=== PATIENT | female | born 2005 | race Caucasian/White ===

== ENCOUNTER 2024-11-13 12:04 | Emergency (ER) | payer MEDICAID, SELFPAY ==
[2024-11-13 12:16] VITALS: BP 116/74; PULSE 68; RESP 16; TEMP 36.6; O2SAT 98
--- NOTE | 2024-11-13 12:30 | DI.RAD_ITS ---
Exam(s) XR KNEE LT 3V AP,LAT,CATRACHITO EXAM: XR KNEE LT 3V AP,LAT,CATRACHITO CLINICAL HISTORY: pain post fall, ecchymosis. TECHNIQUE: 2D digital imaging was performed. Three views. COMPARISON: No exams were available for comparison FINDINGS: BONES: No acute fracture is present. No bony destructive lesion is seen. JOINTS: The knee is normally aligned. No joint effusion is seen. SOFT TISSUE: Normal. IMPRESSION: Normal radiographs of the left knee. DATA REPOSITORY: RADIATION DOSE DELIVERED:
--- NOTE | 2024-11-13 12:48 | ED.GENADUL_ITS ---
Discharge Plan Disposition Patient Disposition: Home Discharge Details Clinical Impression: Contusion of knee, left Primary Care Provider: Abi,Local ED Provider: Yeni Enriquez Home Meds and New Rx's Prescriptions: No Action No Known Home Meds Discharge Instructions Instructions: Acute Pain, Adult Additional Instructions: You may take Motrin and Tylenol as needed for pain You may use your brace for comfort over the course of the next week Please be reevaluated at your scheduled appointment on Thursday Return earlier should you have new or worsening complaints Stand Alone Forms: Work Release HPI General Date/Time Provider Initiated Documentation: 11/13/24 12:17 . HPI Narrative: this 19 yo female presents with wrist injury on Thursday of this week. And states that she tripped landing on her left knee and left wrist. She was evaluated at occupational health and had an x-ray of her left wrist which was reportedly negative for acute abnormality at [facility]. She has been wearing her splint since that time but she is instructed to wear return to work and she does not feel like she is able to perform her job at this time. She also states that her knee was not evaluated and she is asking that we perform an x-ray. Denies transfer or any additional complaints at this time. Denies having her head or loss of conscious. Related Data Home Medications ?Medication ?Instructions ?Recorded ?Confirmed Unknown [No Known Home Meds] 11/13/24 11/13/24 Allergies Allergy/AdvReac Type Severity Reaction Status Date / Time Penicillins Allergy Intermediate Contraindic Verified 11/13/24 12:20 ated diphenhydramine (From AdvReac Mild Other (See Verified 11/13/24 12:20 Benadryl) Comment) General Stated Complaint: Orthopedic MAISHA: 4 Exam Narrative Exam Narrative: Alert and oriented 19-year-old female in no acute distress, left knee with ecchymosis, flexion extension intact no joint laxity, no tenderness to left hip or left ankle neurovascularly intact left wrist with tenderness at the thenar eminence, no obvious signs of trauma, neurovascularly intact predominantly tender with movement of the left thumb Course Vital Signs Vital signs: Vital Signs Temperature 36.6 C 11/13/24 12:16 Pulse 68 11/13/24 12:16 Respiratory Rate 16 11/13/24 12:16 Blood Pressure 116/74 11/13/24 12:16 Pulse Oximetry 98 11/13/24 12:16 Temperature 36.6 C 11/13/24 12:16 Temperature Source Oral 11/13/24 12:16 Pulse 68 11/13/24 12:16 Respiratory Rate 16 11/13/24 12:16 Blood Pressure 116/74 11/13/24 12:16 Blood Pressure Position Sitting 11/13/24 12:16 Pulse Oximetry 98 11/13/24 12:16 Oxygen Delivery Method Room Air 11/13/24 12:16 Oxygen Flow Rate 0 11/13/24 12:16 Pain Level 6 11/13/24 12:40 Medical Decision Making 9-year-old female in no acute distress, left knee x-ray was ordered which per radiology interpretation my review does not show evidence of acute abnormality. Patient is placed in a left knee splint for comfort she will continue to wear her left wrist brace. She is given a work note with restrictions and instructed to follow-up with occupational health at her appointment on Thursday. She is given low threshold to return should she have new or worsening complaints return precautions reviewed and patient expressed understanding Quality:SDOH Health Related Social Needs: No Data to Display PFSH All Active Problems (Updated 11/13/24 @ 14:00 by ANANYA Yung) Contusion of knee, left (Acute) Social History Smoking/Tobacco Use Status: Never Smoking risk assessment performed?: Yes Alcohol Intake: never Drug use: Never Substance use type: former substance user Housing: apartment Do you feel safe at home: Yes Do you feel safe in your relationship?: Yes
--- NOTE | 2024-11-13 13:51 | DI.VRAD_ITS ---
PROCEDURE INFORMATION: Exam: XR Left Knee Exam date and time: 11/13/2024 1:07 PM Age: 19 years old Clinical indication: Other: Pain post fall, ecchymosis TECHNIQUE: Imaging protocol: Radiologic exam of the left knee. Views: 3 views. COMPARISON: No relevant prior studies available. FINDINGS: Bones/joints: There is no evidence of acute fracture.There is no evidence of malalignment or dislocation. Soft tissues: Normal. IMPRESSION: There is no evidence of acute fracture.There is no evidence of malalignment or dislocation. Dictated and Authenticated by: Monalisa Irizarry MD. Orderin Zoe Jaime MD
[2024-11-13 14:18] VITALS: BP 99/65; PULSE 71; RESP 16; TEMP 36.6; O2SAT 98
== END 2024-11-13 14:19 | disposition home or self-care (01) ==
PROVIDERS: Emergency Provider Physician Assistant
DX: S80.02XA Contusion of left knee, initial encounter (principal); W01.0XXA Fall on same level from slipping, tripping and stumbling without subsequent striking against object, initial encounter; Y99.0 Civilian activity done for income or pay
CPT/HCPCS: 29505; 73562; 99283

== ENCOUNTER 2024-11-16 19:12 | Emergency (ER) | payer MEDICAID, SELFPAY ==
[2024-11-16 19:21] VITALS: BP 113/71; PULSE 83; RESP 20; TEMP 36.7; O2SAT 98
--- NOTE | 2024-11-16 19:30 | ED.GENADUL_ITS ---
Discharge Plan Disposition Patient Disposition: Home Condition: Stable Discharge Details Clinical Impression: Tight cast Primary Care Provider: Abi,Local ED Provider: Dianelys Denton Home Meds and New Rx's Prescriptions: No Action No Known Home Meds Discharge Instructions Instructions: How to Use an Elastic Bandage Additional Instructions: You were seen in the emergency department today for evaluation of hand pain and swelling in the setting of a splint with an Mario wrap. In our department he had a full physical examination performed, and the Mario wrap was loosened. After that the pain and swelling in your hand improved, and you had good sensation and circulation. It is safe for you to go home and follow-up at your scheduled appointment for reevaluation, please continue to use the splints as recommended, and continue to use Tylenol and ibuprofen as needed for pain and ice and elevation for swelling. Please follow-up with your primary care provider in the next few days to discuss this visit and any symptoms that change, worsen, or persist. Thank you for allowing us to be part of your care. HPI General Mode of arrival: ambulatory . Date/Time Provider Initiated Documentation: 11/16/24 19:15 . Limitations to Documentation: no limitations . Information obtained by: patient, family and old records reviewed . HPI Narrative: HPI: This is a 19-year-old female patient who was seen in the emergency department in urgent care for wrist injury, placed in a thumb spica splint, presenting for evaluation of a splint that feels too tight. She noticed that her left hand was swollen, tender, and presented for this concern. She states that she has otherwise been in her normal state of health, has a plan for outpatient follow-up for definitive management of this presumed fracture. She was also placed in a knee brace at her last visit and has been wearing that without difficulties or issues. Prior to my evaluation, the patient's Mario bandage was loosened, and she had an immediate sensation of relief, with improvement in her swelling. Exam: Gen: Awake and alert, in no apparent distress HEENT: Non-icteric sclera Neck: Supple Lungs: No apparent respiratory distress, normal respiratory effort. CV: Appears well perfused Abdomen: Non-distended MSK: Moves 4 extremities without apparent limitation in ROM, left wrist is in a Orthoplast thumb spica splint with a Mario wrap, CSM's are present, and symmetrical distal to the splint, with brisk capillary refill, full movement and sensation. Left knee in a hinged knee brace Skin: Visualized skin without rashes, cyanosis. Neuro: Normal Gait, no obvious focal deficits or facial asymmetry. Speaks in full, clear sentences. Psych: Appropriate for situation. MDM: This is a 19-year-old female patient presenting for evaluation of a tight splint. The splint has been readjusted and she has had resolution of her symptoms. Differential includes but is not limited to constricting Mario wrap, I see no evidence of ongoing neurovascular derangement, significant swelling, did consider swelling in the context of her recent injury fracture. ED Course: At this time, the patient has had a full medical evaluation and is safe for discharge to home. They are hemodynamically stable, ambulatory, and tolerating PO. They are understanding of the follow-up plan and return precautions. They left our facility without incident. Dianelys Denton MD Related Data Home Medications ?Medication ?Instructions ?Recorded ?Confirmed Unknown [No Known Home Meds] 11/13/24 11/16/24 Allergies Allergy/AdvReac Type Severity Reaction Status Date / Time Penicillins Allergy Intermediate Contraindic Verified 11/16/24 19:24 ated diphenhydramine (From AdvReac Mild Other (See Verified 11/16/24 19:24 Benadryl) Comment) General Stated Complaint: Orthopedic MAISHA: 4 Course Vital Signs Vital signs: Vital Signs Temperature 36.7 C 11/16/24 19:21 Pulse 83 11/16/24 19:21 Respiratory Rate 20 11/16/24 19:21 Blood Pressure 113/71 11/16/24 19:21 Pulse Oximetry 98 11/16/24 19:21 Temperature 36.7 C 11/16/24 19:21 Pulse 83 11/16/24 19:21 Respiratory Rate 20 11/16/24 19:21 Blood Pressure 113/71 11/16/24 19:21 Blood Pressure Position Sitting 11/16/24 19:21 Pulse Oximetry 98 11/16/24 19:21 Oxygen Delivery Method Room Air 11/16/24 19:21 Oxygen Flow Rate 0 11/16/24 19:21 Medical Decision Making Quality:SDOH Health Related Social Needs: No Data to Display PFSH All Active Problems (Updated 11/16/24 @ 19:31 by Dianelys Denton MD) Tight cast (Acute) Contusion of knee, left (Acute) Social History Smoking/Tobacco Use Status: Never Smoking risk assessment performed?: Yes Alcohol Intake: never Drug use: Never Substance use type: former substance user Housing: apartment Do you feel safe at home: Yes Do you feel safe in your relationship?: Yes
[2024-11-16 19:42] VITALS: BP 113/71; PULSE 83; RESP 20; TEMP 36.7; O2SAT 98
== END 2024-11-16 19:42 | disposition home or self-care (01) ==
LOC: ER 19:33
PROVIDERS: Emergency Provider Emergency Medicine
DX: Z47.89 Encounter for other orthopedic aftercare (principal)
CPT/HCPCS: 99282

== ENCOUNTER 2024-11-23 07:41 | Emergency (ER) | payer MEDICAID, SELFPAY ==
[2024-11-23 07:47] VITALS: BP 112/57; PULSE 70; RESP 18; TEMP 36.6; O2SAT 97
--- NOTE | 2024-11-23 08:14 | W.ED.GENAD ---
Discharge Plan Disposition Patient Disposition: Home Condition: Good Discharge Details Clinical Impression: Allergic to bugs, Swelling of eyelid Primary Care Provider: Abi,Local ED Provider: Tessa Conte Home Meds and New Rx's Prescriptions: New prednisone 20 mg tablet 40 mg PO DAILY 2 Days Qty: 4 0RF Discharge Instructions Instructions: Insect allergy, Prednisone Additional Instructions: Will still frustrating and not knowing what has bitten you, I encourage you to continue to look into this as you have been. I am concerned that if you continue to have bites he was to have recurrence of your exposure and increased symptoms. While many of your bug bites look fairly benign, I am concerned that the swelling over the left eye has not gone down over the past 2 days and feel that a small course of steroids would be beneficial. You are given your first dose here today, second dose to be taken tomorrow morning and has been sent to [facility]. Please continue to encourage hydration. Ice packs over this can also help with swelling. Although you are allergic to Benadryl, you may find other antihistamine such as Claritin, famotidine however [id number] options to be of benefit without having the side effects experienced with Benadryl. I have placed you on follow-up list with primary care and you should hear from our care management team regarding establishing local primary care. If you develop any fever/chills, increased pain, visual changes or the new/worsening symptoms please seek care urgently once again. HPI General Date/Time Provider Initiated Documentation: 11/23/24 07:51. Limitations to Documentation: no limitations. Information obtained by: patient and RN notes reviewed. History of Present Illness 19 year old F presents to the emergency department with the chief complaint of swollen left eye lid, bug bites, allergies, described as moderate, with intensity rated at 6. Quality is described as aching (pressure, swelling), and is localized to the face and eyes. Patient started experiencing this day(s) and it has been constant. other things that improve symptom(s), (being upright) Rest worsens symptoms (laying flat) . Patient notes no other symptoms.. Patient did receive the following treatments prior to arrival, none Related Data Home Medications ?Medication ?Instructions ?Recorded ?Confirmed prednisone 20 mg tablet 40 mg (2 x 20 mg) PO DAILY 2 days 11/23/24 #4 tabs Previous Rx's ?Medication ?Instructions ?Recorded prednisone 20 mg tablet 40 mg (2 x 20 mg) PO DAILY 2 days 11/23/24 #4 tabs Allergies Allergy/AdvReac Type Severity Reaction Status Date / Time Penicillins Allergy Intermediate Contraindic Verified 11/23/24 07:49 ated diphenhydramine (From AdvReac Mild Other (See Verified 11/23/24 07:49 Benadryl) Comment) General Stated Complaint: Allergic MAISHA: 4 Review of Systems Constitutional Constitutional: Reports as per HPI, Denies chills and Denies fever(s) Eyes Eyes: Reports as per HPI ENT Ears, Nose, Mouth, and Throat: Reports as per HPI Cardiovascular Cardiovascular: Denies chest pain Respiratory Respiratory: Reports as per HPI Gastrointestinal Gastrointestinal: Reports as per HPI Integumentary/Breasts Skin/Breast: Reports as per HPI Exam Const General: cooperative, healthy appearing, comfortable, no acute distress, well developed and anxious Nutritional Appearance: average body habitus and well nourished Orientation: alert, awake and oriented x3 HENMT Head: normal to inspection, normocephalic and atraumatic Ears: hearing grossly normal bilaterally General nose exam: external nose normal Face and sinus: no crepitus, erythema (redness associated with around the left eyelid but more pink than red), no fluctuance, no lacerations and no sinus tenderness Mouth: oral mucosae normal, lip normal, tongue normal, oropharynx normal, moist mucous membranes, no drooling and no muffled voice Teeth and gingiva: dentition normal Throat: posterior oropharynx normal Eyes Alignment and Position: alignment normal and position normal Eyelids: eyelid abnormality right upper eyelid erythema and swelling; nontender Conjunctivae: conjunctivae normal Sclera: sclerae normal Cornea: corneas normal Pupils: PERRL, normal by confrontation and accommodation normal EOM: EOM intact bilaterally Resp Effort & Inspection: normal respiratory effort, able to speak in complete sentences and no respiratory distress Cardio Rate: regular rate Rhythm: regular rhythm Skin General skin exam: erythema (several bug bites, especially at left eye as above) Neuro General: patient alert and patient awake Cognition: normal cognition Speech: speech normal Gait: normal gait Course Vital Signs Vital signs: Vital Signs Temperature 36.6 C 11/23/24 07:47 Pulse 70 11/23/24 07:47 Respiratory Rate 18 11/23/24 07:47 Blood Pressure 112/57 L 11/23/24 07:47 Pulse Oximetry 97 11/23/24 07:47 Temperature 36.6 C 11/23/24 07:47 Pulse 70 11/23/24 07:47 Respiratory Rate 18 11/23/24 07:47 Blood Pressure 112/57 L 11/23/24 07:47 Blood Pressure Position Sitting 11/23/24 07:47 Pulse Oximetry 97 11/23/24 07:47 Oxygen Delivery Method Room Air 11/23/24 07:47 Oxygen Flow Rate 0 11/23/24 07:47 Pain Level 6 11/23/24 07:47 Medical Decision Making Patient is a pleasant 19-year-old female with past medical history of anxiety, allergies to bug bites, presenting today with chief complaint of several bug bites, most predominant which is to the left eye. She reports she has been waking with these bites since moving to the area few months ago. However, the 1 in the left eye has been more problematic than the others. She does demonstrate what appears to be benign bug bites on her right forearm, left thumb, left thigh. She reports that her significant other who sleeps in the same space as her has not had any similar bites. They have been assessed for bedbugs and fleas and have not had either of these. States that the bug bite on the left eye occurred about 2 days ago and while the swelling has waxed and waned, it is been fairly consistent and is problematic as the swelling to the upper lid can cause visual obstruction make it difficult for her to drive. No fevers or chills. Discomfort with the swelling but no significant pain over the eyelid. States that she does have some obstruction to her vision but no true visual changes. On exam, patient appears anxious but otherwise nontoxic. She is hemodynamically stable. She does have swelling to the left upper lid but she is able to open the eyes and has a normal eye exam. No conjunctival injection. No discharge. Pupils are equal round and reactive. The area of swelling, which is predominantly to the upper lid is pink but does not significantly red or hot. No crepitus or fluctuance. Nontender to palpation. The area of bite appears to be on the lateral aspect of the upper lid as I can see a small red dot which is consistent with the other areas she is able to demonstrate with said bites. At this point, patient does not appear systemically ill. I do not see evidence to suggest orbital cellulitis or periorbital cellulitis. No evidence to suggest infectious process. No ocular involvement that I can appreciate. However, with the swelling continuing over 2 days and obstructing her ability to drive and complete her activities of daily living, feel that treatment with steroids is appropriate. Patient does become high with Benadryl and is not able to take this on a routine basis. We did discuss other antihistamines as well as continuing cool compresses. We also discussed that some of the increase in swelling can be associated with a dependent position at night so would expect exacerbated symptoms in the morning. However, it does sound like while the symptoms do improve somewhat throughout the day, they still are bothersome enough to limit vision and be problematic for the patient. We did discuss side effects at length. Patient is quite anxious around taking medications we did have an in-depth discussion regarding treatment options, potential side effects to watch for. Return precautions were discussed. I have asked care management to establish local primary care. Strict return precautions were given. All her questions and concerns were addressed and she is in agreement this plan. This documentation was generated using [employer] dictation system, please disregard any oddities of phrase or misspellings. Quality:SDOH Health Related Social Needs: No Data to Display PFSH All Active Problems (Updated 11/23/24 @ 08:17 by AANNYA Vigil) Swelling of eyelid (Acute) Allergic to bugs (Acute) Tight cast (Acute) Contusion of knee, left (Acute) Social History Smoking/Tobacco Use Status: Never Smoking risk assessment performed?: Yes Alcohol Intake: never Drug use: Never Substance use type: does not use Housing: apartment Do you feel safe at home: Yes Do you feel safe in your relationship?: Yes
[2024-11-23] MEDS: predniSONE 20 MG TAB 40 MG PO (08:16)
== END 2024-11-23 08:36 | disposition home or self-care (01) ==
PROVIDERS: Emergency Provider Physician Assistant
DX: H02.841 Edema of right upper eyelid (principal); T63.481A Toxic effect of venom of other arthropod, accidental (unintentional), initial encounter
CPT/HCPCS: 99283; J7512

== ENCOUNTER 2024-12-10 13:38 | Emergency (ER) | payer MEDICAID, SELFPAY ==
[2024-12-10 13:41] VITALS: BP 97/63; PULSE 85; RESP 16; TEMP 36.6; O2SAT 98
[2024-12-10 13:43] VITALS: BP 97/63; PULSE 85; RESP 16; TEMP 36.6; O2SAT 98
[2024-12-10] MEDS: Ondansetron O.D.T. 4 MG TABEF PO (13:52)
[2024-12-10 14:14] VITALS: RESP 16
--- NOTE | 2024-12-10 14:54 | ED.GENADUL_ITS ---
Discharge Plan Disposition Patient Disposition: Home Condition: Stable Discharge Details Clinical Impression: Acute viral syndrome Primary Care Provider: Abi,Local ED Provider: Javid Kovacs Home Meds and New Rx's Prescriptions: New ondansetron 4 mg tablet,disintegrating 4 mg PO Q6H PRN (Reason: nausea and vomiting) Qty: 30 0RF Discharge Instructions Additional Instructions: Your viral testing is negative for flu and COVID. Your symptoms are very consistent with a viral syndrome. Please continue Motrin and Tylenol as needed. Prescription for nausea medication has been sent to the pharmacy. Please return if you have severe worsening of symptoms, unable to tolerate anything by mouth. Otherwise you can follow-up with your primary care for any ongoing issues. HPI General Date/Time Provider Initiated Documentation: 12/10/24 13:44 . Limitations to Documentation: no limitations . Information obtained by: patient . HPI Narrative: 19-year-old female without significant past medical history presents for evaluation of subjective fever, headache, cough, nausea nasal congestion. Symptoms started mildly yesterday, reports significant change in symptoms today. Subjective fever at home, they do not have a thermometer. Has had nausea but no vomiting. Related Data Home Medications ?Medication ?Instructions ?Recorded ?Confirmed ondansetron 4 mg disintegrating 4 mg PO Q6H PRN nausea and 12/10/24 tablet vomiting #30 tabs Previous Rx's ?Medication ?Instructions ?Recorded ondansetron 4 mg disintegrating 4 mg PO Q6H PRN nausea and 12/10/24 tablet vomiting #30 tabs Allergies Allergy/AdvReac Type Severity Reaction Status Date / Time Penicillins Allergy Intermediate Contraindic Verified 12/10/24 13:43 ated diphenhydramine (From AdvReac Mild Other (See Verified 12/10/24 13:43 Benadryl) Comment) General Stated Complaint: GenMedical MAISHA: 3 Exam Narrative Exam Narrative: Review of Systems: All systems reviewed & are unremarkable except as noted in HPI and below Well-developed, no acute distress Afebrile NCAT Bilateral TMs unremarkable Oropharynx without tonsillar enlargement or exudate, no significant cervical adenopathy she says since PERRL, normal conjunctiva RRR Unlabored respiratory effort, CTAB Course Vital Signs Vital signs: Vital Signs Temperature 36.6 C 12/10/24 13:41 Pulse 85 12/10/24 13:41 Respiratory Rate 16 12/10/24 13:41 Blood Pressure 97/63 L 12/10/24 13:41 Pulse Oximetry 98 12/10/24 13:41 Temperature 36.6 C 12/10/24 13:43 Pulse 85 12/10/24 13:43 Respiratory Rate 16 12/10/24 14:14 Respiratory Effort Normal, Non-Labored 12/10/24 14:14 Respiratory Depth Normal 12/10/24 14:14 Respiratory Pattern Normal 12/10/24 14:14 Blood Pressure 97/63 L 12/10/24 13:43 Pulse Oximetry 98 12/10/24 13:43 Lab/Test Results Lab/Test Results: POC- Test(urine) Negative Medical Decision Making Emergent evaluation of URI symptoms. Symptoms do seem consistent with a viral syndrome. Her examination is benign and she is nontoxic-appearing. She has low blood pressure, but is a very petite thin woman. I do not suspect that she has sepsis. She is not . Viral testing for flu and COVID were both negative. She was provided with Zofran in the emergency department and prescription to go home with. Supportive care instructions provided to the patient recommend close follow-up with PCP as needed. Quality:SDOH Health Related Social Needs: No Data to Display PFSH All Active Problems (Updated 12/10/24 @ 14:26 by Javid Kovacs MD) Acute viral syndrome (Acute) Swelling of eyelid (Acute) Allergic to bugs (Acute) Tight cast (Acute) Contusion of knee, left (Acute) Social History Smoking/Tobacco Use Status: Never Smoking risk assessment performed?: Yes Alcohol Intake: never Drug use: Never Substance use type: does not use Housing: apartment Do you feel safe at home: Yes Do you feel safe in your relationship?: Yes
[2024-12-10 15:04] VITALS: BP 100/62; PULSE 76; RESP 16; TEMP 36.6; O2SAT 98
== END 2024-12-10 15:16 | disposition home or self-care (01) ==
PROVIDERS: Emergency Provider Emergency Medicine
DX: B34.9 Viral infection, unspecified (principal)
CPT/HCPCS: 81025; 87426; 99283

== ENCOUNTER 2025-02-17 09:20 | Emergency (ER) | payer MEDICAID, SELFPAY ==
[2025-02-17 09:23] VITALS: BP 110/76; PULSE 109; RESP 18; TEMP 36.7; O2SAT 97
--- NOTE | 2025-02-17 09:42 | ED.GENADUL_ITS ---
Discharge Plan Disposition Patient Disposition: Home Condition: Good Discharge Details Clinical Impression: Nausea and vomiting, URI (upper respiratory infection) Primary Care Provider: Abi,Local ED Provider: Tessa Conte Home Meds and New Rx's Prescriptions: New ondansetron 4 mg tablet,disintegrating 4 mg PO Q6H PRN (Reason: nausea and vomiting) Qty: 20 0RF No Action ondansetron 4 mg tablet,disintegrating 4 mg PO Q6H PRN (Reason: nausea and vomiting) Qty: 30 0RF Discharge Instructions Instructions: Nausea and Vomiting, Adult ED, Upper respiratory infection in adults - Discharge instructions Additional Instructions: As we discussed, you are negative here today for flu, COVID, but believe he have a different viral illness based on the different symptoms you are presenting with. I encouraged hydration. Please take frequent sips. You may use the Zofran as prescribed if you have any recurrent nausea or vomiting. May advance diet as tolerated but I encourage you to start with more easy digest foods such as bananas, rice, applesauce, toast. May use Tylenol and ibuprofen as needed for discomfort. Please take as directed on the packaging. I have sent a referral for local primary care, please ensure you follow-up with them within the next 1 to 2 weeks for reevaluation and to establish care. If you develop inability stay hydrated, fever/chills, increased pain or other new/worsening symptom please seek care urgently once again. Discharge Data Discharge Date/Time-TO BE ENTERED AT DEPARTURE: 02/17/25 11:50 HPI General Date/Time Provider Initiated Documentation: 02/17/25 09:35 . Limitations to Documentation: no limitations . Information obtained by: patient, family (signficant other) and RN notes reviewed . History of Present Illness 19 year old F presents to the emergency department with the chief complaint of cough, sore throat, GI upset, described as moderate, Patient started experiencing this day(s) (1) and it has been constant. No relieving factors improve symptom(s), No exacerbating factors reported . Patient notes cough, loss of appetite, malaise and nausea/vomiting; denies chest pain, diaphoresis, fever/chills, rash, shortness of breath, syncope and weakness. Patient did receive the following treatments prior to arrival, none Related Data Home Medications ?Medication ?Instructions ?Recorded ?Confirmed ondansetron 4 mg disintegrating 4 mg PO Q6H PRN nausea and 12/10/24 02/17/25 tablet vomiting #30 tabs ondansetron 4 mg disintegrating 4 mg PO Q6H PRN nausea and 02/17/25 tablet vomiting #20 tabs Previous Rx's ?Medication ?Instructions ?Recorded ondansetron 4 mg disintegrating 4 mg PO Q6H PRN nausea and 12/10/24 tablet vomiting #30 tabs ondansetron 4 mg disintegrating 4 mg PO Q6H PRN nausea and 02/17/25 tablet vomiting #20 tabs Allergies Allergy/AdvReac Type Severity Reaction Status Date / Time Penicillins Allergy Intermediate Contraindic Verified 02/17/25 09:26 ated diphenhydramine (From AdvReac Mild Other (See Verified 02/17/25 09:26 Benadryl) Comment) General Stated Complaint: Nausea/Vomit/Diar MAISHA: 3 Review of Systems Constitutional Constitutional: Reports as per HPI, Reports fatigue, Reports headache(s), Reports malaise and Reports poor appetite Eyes Eyes: Reports as per HPI, Denies eye discharge and Denies irritation ENT Ears, Nose, Mouth, and Throat: Reports as per HPI and Reports headache(s) Cardiovascular Cardiovascular: Reports as per HPI, Denies chest pain and Denies dyspnea Respiratory Respiratory: Reports as per HPI and Denies dyspnea Gastrointestinal Gastrointestinal: Reports as per HPI, Denies abdominal pain, Denies change in bowel habits, Reports nausea and Reports vomiting Integumentary/Breasts Skin/Breast: Reports as per HPI and Denies rash Neurologic Neurologic: Reports as per HPI and Reports headache(s) Endocrine Endocrine: Reports fatigue Exam Const General: cooperative, healthy appearing, comfortable, no acute distress, well developed, well groomed and anxious (tearful) Nutritional Appearance: average body habitus and well nourished Orientation: alert and awake [facility] Head: normal to inspection, normocephalic and atraumatic Ears: hearing grossly normal bilaterally, external ears normal and TM's normal bilaterally General nose exam: external nose normal and nares normal Face and sinus: normal facial exam, sinuses nontender and face symmetric Mouth: oral mucosae normal, lip normal, tongue normal, oropharynx normal and moist mucous membranes Teeth and gingiva: dentition normal Throat: posterior oropharynx normal, tonsils normal and uvula midline Eyes General: appearance normal, both eyes and all related structures Neck Neck: normal visual inspection, full ROM, no lymphadenopathy and no meningeal signs Resp Effort & Inspection: normal respiratory effort, able to speak in complete sentences and no respiratory distress Auscultation: clear to auscultation bilaterally, no rales, no rhonchi and no wheezes Cardio Rate: regular rate Rhythm: regular rhythm Heart Sounds: S1 normal and S2 normal GI Inspection: normal to inspection Palpation: soft, no guarding and nontender Skin General skin exam: no rashes or lesions noted Neuro General: patient alert and patient awake Cognition: normal cognition Speech: speech normal Gait: normal gait Course Vital Signs Vital signs: Vital Signs Temperature 36.7 C 02/17/25 09:23 Pulse 109 H 02/17/25 09:23 Respiratory Rate 18 02/17/25 09:23 Blood Pressure 110/76 02/17/25 09:23 Pulse Oximetry 97 02/17/25 09:23 Temperature 36.7 C 02/17/25 09:23 Temperature Source Oral 02/17/25 09:23 Pulse 109 H 02/17/25 09:23 Respiratory Rate 18 02/17/25 09:23 Blood Pressure 110/76 02/17/25 09:23 Pulse Oximetry 97 02/17/25 09:23 Oxygen Delivery Method Room Air 02/17/25 09:23 Oxygen Flow Rate 0 02/17/25 09:23 Medical Decision Making Patient is a 19-year-old female, accompanied by significant other, with no significant past medical history, presenting today with chief complaint of 24 hours of nausea, vomiting, sore throat, ear discomfort and cough. No known sick contacts. No recent travel. She does report that this morning, after trying to eat some chicken nuggets, she was dry heaving and is not sure if she coughed or dry heaves may have been brown blood. However, this was also at the same time that she was eating. Significant other indicates that this is quite small and not truly identified as blood. No other episodes like this. No significant abdominal pain, rather just having some discomfort from the nausea. She has not tried anything for the her symptoms. Normal bowel and bladder habits. Currently on menses. On exam, patient appears nontoxic. She resting comfortably no acute distress although she does appear very anxious. I did discuss this with her and she is concerned about how poorly she feels. She was slightly tachycardic with a heart rate of 109. On auscultation, does seem that this has slowed down. Normal cardiac and pulmonary exam. Her lungs are clear in all gregory, moving air well and speaking in full sentences. HEENT exam is without significant abnormality, potentially some mild erythema in the posterior oropharynx but no indication to suggest strep such as significant swelling, erythema or exudate. She has no lymphadenopathy. The broad range of her symptoms are most consistent with a viral illness. More concerned that she is not able to keep down fluids at this point, will give Zofran and attempt some oral rehydration. Will give her some Tylenol for her discomfort. Continue to monitor her and ensure that she is able to stay hydrated. I do not see indication to suggest that the patient is septic, has a bacterial illness, any significant bleeding or other emergent pathology at this point. After Zofran and Tylenol, patient significantly improved. She feels ready for d/c to home. viral panel negative. PRESLEY, nausea, improved. We discussed supportive care. Encoruaged hydration. Will continue with ODT Zofran Was sent to her pharmacy. Strict return precautions were discussed. Advise follow-up with primary care. As patient does not have a locally, I did ask that care management help arrange for follow-up. All of her questions and concerns were addressed and she is in agreement with this plan. PFSH All Active Problems (Updated 02/17/25 @ 11:32 by ANANYA Vigil) URI (upper respiratory infection) (Acute) Nausea and vomiting (Acute) Social History Smoking/Tobacco Use Status: Never Smoking risk assessment performed?: Yes Alcohol Intake: never Drug use: Never Substance use type: does not use Housing: apartment Do you feel safe at home: Yes Do you feel safe in your relationship?: Yes
[2025-02-17 09:43] VITALS: BP 110/76; PULSE 109; RESP 18; TEMP 36.7; O2SAT 97
[2025-02-17] MEDS: Acetaminophen 325 MG TAB 650 MG PO (10:40)
[2025-02-17] MEDS: Ondansetron O.D.T. 4 MG TABEF PO (10:40)
[2025-02-17 11:11] VITALS: BP 114/67; PULSE 75; RESP 16; O2SAT 100
[2025-02-17 11:49] VITALS: BP 102/62; PULSE 75; RESP 16; O2SAT 100
== END 2025-02-17 11:50 | disposition home or self-care (01) ==
PROVIDERS: Emergency Provider Physician Assistant
DX: R11.2 Nausea with vomiting, unspecified (principal); J02.9 Acute pharyngitis, unspecified
CPT/HCPCS: 87426; 99283

== ENCOUNTER 2025-03-16 08:17 | Emergency (ER) | payer MEDICAID, SELFPAY ==
[2025-03-16 08:19] VITALS: BP 94/54; PULSE 88; RESP 16; TEMP 37.1; O2SAT 97
--- NOTE | 2025-03-16 08:30 | DI.RAD_ITS ---
Exam(s) XR HAND RT COMPLETE EXAM: XR HAND RT COMPLETE CLINICAL HISTORY: pain 4-5 mcp, s/p fall. TECHNIQUE: 2D digital imaging was performed. Three views. COMPARISON: No exams were available for comparison FINDINGS: BONES: No acute fracture is present. No bony destructive lesion is seen. JOINTS: No dislocation present. SOFT TISSUE: Normal. IMPRESSION: Unremarkable radiographs of the right hand. DATA REPOSITORY: RADIATION DOSE DELIVERED:
--- NOTE | 2025-03-16 08:37 | ED.GENADUL_ITS ---
Discharge Plan Disposition Patient Disposition: Home Discharge Details Clinical Impression: Finger sprain Primary Care Provider: Abi,Local ED Provider: Yeni Enriquez Home Meds and New Rx's Prescriptions: No Action No Known Home Meds Discharge Instructions Instructions: Finger Sprain (DC) Additional Instructions: motrin/tylenol as needed for pain rest with splint apply ice your xray was read by radiologist and does not show a break/fracture recheck in one week with persistent pain, numbness/tingling, or should any new concerns arise HPI General Date/Time Provider Initiated Documentation: 03/16/25 08:19 . HPI Narrative: The patient is a 20-year-old female who presents for evaluation of pain in her right hand after a fall yesterday. She went to work this morning and tried using her hand and had some difficulty secondary to discomfort. She reports no pain in the wrist but notes that the discomfort is primarily in the 4th and 5th fingers. She is not . Related Data Home Medications ?Medication ?Instructions ?Recorded ?Confirmed Unknown [No Known Home Meds] 03/16/25 0 03/16/25 Allergies Allergy/AdvReac Type Severity Reaction Status Date / Time Penicillins Allergy Intermediate Contraindic Verified 03/16/25 08:25 ated diphenhydramine (From AdvReac Mild Other (See Verified 03/16/25 08:25 Benadryl) Comment) General Stated Complaint: Orthopedic MAISHA: 4 Exam Narrative Exam Narrative: The patient is in no acute distress. There is tenderness over the 4th and 5th MCP joints of the hand. Good capillary refill and sensation are intact distally. No tenderness to the wrist. Course Vital Signs Vital signs: Vital Signs Temperature 37.1 C 03/16/25 08:19 Pulse 88 03/16/25 08:19 Respiratory Rate 16 03/16/25 08:19 Blood Pressure 94/54 L 03/16/25 08:19 Pulse Oximetry 97 03/16/25 08:19 Temperature 37.1 C 03/16/25 08:19 Temperature Source Oral 03/16/25 08:19 Pulse 88 03/16/25 08:19 Respiratory Rate 16 03/16/25 08:19 Blood Pressure 94/54 L 03/16/25 08:19 Blood Pressure Position Sitting 03/16/25 08:19 Pulse Oximetry 97 03/16/25 08:19 Oxygen Delivery Method Room Air 03/16/25 08:19 Oxygen Flow Rate 0 03/16/25 08:19 Pain Level 6 03/16/25 08:28 Medical Decision Making X-ray of the right hand shows no acute abnormality. Per radiology interpretation of my review Initial Assessment: 20-year-old female with right hand pain after a fall, predominantly in the 4th and 5th fingers. No wrist pain. Tenderness over 4th and 5th MCP joints. Good capillary refill and intact distal sensation. ED Course: - X-ray reviewed by me, no acute abnormality. - Aluminum foam finger splint applied by me - Motrin Tylenol rest ice elevation encouraged Final Assessment: X-ray showed no acute abnormality. Aluminum foam finger splint applied. Neurovascularly intact. Clinical Impression: - Right hand pain Disposition: - Discharge home. - Return precautions reviewed and understood. [facility] All Active Problems (Updated 03/16/25 @ 09:00 by ANANYA Yung) Finger sprain (Acute) URI (upper respiratory infection) (Acute) Nausea and vomiting (Acute) Social History Smoking/Tobacco Use Status: Never Smoking risk assessment performed?: Yes Alcohol Intake: never Drug use: Never Substance use type: does not use Housing: apartment Do you feel safe at home: Yes Do you feel safe in your relationship?: Yes
[2025-03-16] MEDS: Ibuprofen 600 MG TAB PO (09:05)
[2025-03-16 09:12] VITALS: BP 95/59; PULSE 66; RESP 16; O2SAT 99
== END 2025-03-16 09:14 | disposition home or self-care (01) ==
PROVIDERS: Emergency Provider Physician Assistant
DX: M79.641 Pain in right hand (principal); S63.616A Unspecified sprain of right little finger, initial encounter; W18.39XA Other fall on same level, initial encounter
CPT/HCPCS: 29130; 99283; 73130

== ENCOUNTER 2025-03-22 07:50 | Emergency (ER) | payer MEDICAID, SELFPAY ==
[2025-03-22 07:54] VITALS: BP 117/66; PULSE 71; RESP 16; TEMP 36.5; O2SAT 97
--- NOTE | 2025-03-22 08:13 | W.ED.GENAD ---
Discharge Plan Disposition Patient Disposition: Home Condition: Stable Discharge Details Clinical Impression: Nausea & vomiting, Acute upper respiratory infection Primary Care Provider: Abi,Local ED Provider: Kayla Tavarez Home Meds and New Rx's Prescriptions: New ondansetron 4 mg tablet,disintegrating 4 mg PO Q6H PRNQty: 14 0RF Discharge Instructions Instructions: Viral Upper Respiratory Infection, Adult (DC), Nausea and Vomiting, Adult ED Additional Instructions: Slowly advance diet. Take Zofran as needed for nausea. If you develop any significant abdominal pain, fevers, intractable vomiting, or significant hemoptysis please return immediately for reevaluation. Discharge Data Discharge Physician: Kayla Tavarez [facility] General Date/Time Provider Initiated Documentation: 03/22/25 08:00. HPI Narrative: 20-year-old female presents for evaluation of vomiting and cough. Patient states that yesterday she was very nauseous and has several episodes of dry heaving. She did vomit once. There was some blood streaked in the vomit. Today she has not had any vomiting however she is slightly nauseous with eating. She has now developed a cough and has had some blood in her sputum. She denies any fevers or chills. No diarrhea or constipation. No increased urinary frequency, dysuria, gross hematuria. Denies any possibility of . No history of asthma. She states a month ago she was exposed to mold and had a similar cough which had resolved. She was able to drink coffee and have other fluids during the night. She ate a small amount of a [place] this morning however was nauseous afterward. She did not vomit at that time. Related Data Home Medications ?Medication ?Instructions ?Recorded ?Confirmed ondansetron 4 mg disintegrating 4 mg PO Q6H PRN #14 tabs 03/22/25 tablet Previous Rx's ?Medication ?Instructions ?Recorded ondansetron 4 mg disintegrating 4 mg PO Q6H PRN #14 tabs 03/22/25 tablet Allergies Allergy/AdvReac Type Severity Reaction Status Date / Time Penicillins Allergy Intermediate Contraindic Verified 03/22/25 07:59 ated diphenhydramine (From AdvReac Mild Other (See Verified 03/22/25 07:59 Benadryl) Comment) General Stated Complaint: GenMedical MAISHA: 4 Review of Systems Narrative: Remainder of review of systems otherwise negative except for as noted in the HPI x 10. Exam Narrative Exam Narrative: General: non-toxic, no respiratory distress, comfortable HEENT: normocephalic, atraumatic, lids and lashes normal, PERRL, EOMI, anicteric sclera, no conjunctival injection, TMs clear bilaterally, moist oral mucosa, no for injection, uvula midline Card: regular rate and rhythm, S1S2, no murmurs, rubs, or gallops Lungs: good air entry, clear to auscultation bilaterally. no wheezes, rales, rhonchi, or retractions Abd: soft, non-tender, non-distended, normal bowel sounds, no rebound or guarding, no peritoneal signs Musculoskeletal: full range of motion of arms and legs, no tenderness to palpation. no clubbing, cyanosis, or edema Neurologic: appropriate for age, strength normal Psych: alert and oriented Skin: no petechiae, no lesions, warm and dry Course Vital Signs Vital signs: Vital Signs Temperature 36.5 C 03/22/25 07:54 Pulse 71 03/22/25 07:54 Respiratory Rate 16 03/22/25 07:54 Blood Pressure 117/66 03/22/25 07:54 Pulse Oximetry 97 03/22/25 07:54 Temperature 36.5 C 03/22/25 07:54 Temperature Source Oral 03/22/25 07:54 Pulse 71 03/22/25 07:54 Respiratory Rate 16 03/22/25 07:54 Blood Pressure 117/66 03/22/25 07:54 Blood Pressure Position Sitting 03/22/25 07:54 Pulse Oximetry 97 03/22/25 07:54 Oxygen Delivery Method Room Air 03/22/25 07:54 Oxygen Flow Rate 0 03/22/25 07:54 Pain Level 3 03/22/25 07:54 Medical Decision Making 20-year-old female presents for evaluation after vomiting yesterday and having cough today with some blood-streaked sputum. At time my evaluation patient is nontoxic. She is not coughing. Her lung sounds are clear. Her abdominal exam is benign. Discussed the possibilities of workup including laboratory studies and imaging. Patient does not want to have laboratory studies done at this time. Will check a UA for any signs of dehydration. Will check rapid flu, COVID, RSV and chest x-ray. Chest x-ray unremarkable. Rapid flu, COVID, RSV are negative. UA shows small amount of ketones. Patient was given ODT Zofran. She would like to continue to hydrate orally. We discussed that if she should develop fevers, intractable vomiting, any significant abdominal pain, episodes of significant hemoptysis she will need to return immediately for reevaluation. PFSH All Active Problems (Updated 03/22/25 @ 09:36 by Kayla Tavarez MD) Acute upper respiratory infection (Acute) Nausea & vomiting (Acute) Finger sprain (Acute) Social History Smoking/Tobacco Use Status: Never Smoking risk assessment performed?: Yes Alcohol Intake: never Drug use: Occasionally Substance use type: marijuana Details: edible occasionally Housing: apartment Do you feel safe at home: Yes Do you feel safe in your relationship?: Yes
[2025-03-22 08:29] VITALS: RESP 16
[2025-03-22 08:39] VITALS: BP 117/66; PULSE 71; RESP 16; TEMP 36.5; O2SAT 97
--- NOTE | 2025-03-22 08:52 | DI.RAD_ITS ---
Exam(s) XR CHEST 2V PA LATERAL EXAM: XR CHEST 2V PA LATERAL CLINICAL HISTORY: cough TECHNIQUE: 2D digital imaging was performed. Two views. COMPARISON: No exams were available for comparison FINDINGS: HEART: Normal size. Aorta: Not dilated. PULMONARY VASCULATURE: Normal. MEDIASTINUM: Unremarkable. LUNGS: Clear. PLEURAL SPACE: No pleural effusion or pneumothorax. BONE:Unremarkable for age. SOFT TISSUES: Unremarkable. IMPRESSION: No acute abnormality. DATA REPOSITORY: RADIATION DOSE DELIVERED:
[2025-03-22 09:08] LABS: Glucose Negative (Negative)
[2025-03-22 09:16] LABS: WBC 0-2 HPF (0-5)
[2025-03-22 09:17] LABS: C & S Indicated? No
[2025-03-22 09:21] LABS: COVID-19 PCR Negative (Negative); RSV PCR Negative (Negative)
[2025-03-22] MEDS: Ondansetron O.D.T. 4 MG TABEF PO (09:48)
[2025-03-22 09:49] VITALS: BP 91/56; PULSE 62; RESP 14; O2SAT 99
== END 2025-03-22 09:52 | disposition home or self-care (01) ==
PROVIDERS: Emergency Provider Emergency Medicine Emergency Medical Services
DX: R11.2 Nausea with vomiting, unspecified (principal); J06.9 Acute upper respiratory infection, unspecified
CPT/HCPCS: 87637; 99284; 71046; 81003; 81015; 99283

== ENCOUNTER 2025-06-21 16:51 | Outpatient (REF) | payer MEDICAID, SELFPAY ==
[2025-06-21 21:25] LABS: HCT 42.6 % (36.0-46.0); HGB 13.8 g/dL (11.2-15.7); MCH 29.9 pg (27.0-33.0); MCHC 32.4 % (32.0-36.0); MCV 92 fL (80-95); MPV 11.4 fL (8.0-11.0); Platelet Count 246 10^3/uL (130-400); RBC 4.62 10^6/uL (3.93-5.22); RDW 12.3 % (11.7-14.6); RDW-SD 41.5 fL; WBC 6.64 10^3/uL (4.4-10.8)
[2025-06-21 21:48] LABS: Iron 95 ug/dL (50-170); Total Iron Binding Capacity 283 ug/dL (250-450)
[2025-06-21 22:04] LABS: ALT 35 U/L (14-59); AST 19 U/L (15-37); Albumin 4.5 g/dL (3.4-5.0); Alkaline Phosphatase 85 U/L (46-116); Anion Gap 9.9 mmol/L (3-11); BUN 8 mg/dL (7-18); Bilirubin, Total 0.4 mg/dL (0.2-1.0); CO2 27.1 mmol/L (21.0-32.0); Calcium 9.3 mg/dL (8.5-10.1); Chloride 101 mmol/L (98-107); Estimated GFR 107.44 (mL/min/1.73m2); Ferritin 26 ng/mL (8-252); Glucose 83 mg/dL (74-106); Potassium 3.9 mmol/L (3.5-5.1); Sodium 138 mmol/L (136-145); TSH (W/Ref FT4) 1.61 uIU/mL (0.36-3.74); Total Protein 8.6 g/dL (6.4-8.2); Vitamin B12 371 pg/mL (193-986)
== END 2025-06-21 16:52 | disposition home or self-care (01) ==
LOC: NCHCN 16:51
DX: R00.2 Palpitations (principal)
CPT/HCPCS: 80053; 85027; 82607; 82728; 83540; 83550; 84443